=== PATIENT | female | born 2000 | race African-American/Black ===

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

== ENCOUNTER 2021-11-01 14:34 | Emergency (ER) | payer SELFPAY ==
[2021-11-01] MEDS ORDERED: Ondansetron ODT 4 MG TAB ONE (14:50)
[2021-11-02 12:00] LABS: SARS-CoV-2 PCR by NAA Not Detected (NotDetected)
== END 2021-11-01 14:57 | disposition home or self-care (01) ==
LOC: NAV ERS 14:34
DX: J06.9 Acute upper respiratory infection, unspecified (principal); B34.9 Viral infection, unspecified; R11.2 Nausea with vomiting, unspecified; Z20.822 Contact with and (suspected) exposure to COVID-19
CPT/HCPCS: 87804; 99283; Q0162; U0003; U0005